=== PATIENT | male | born 1965 | race Caucasian/White ===

== ENCOUNTER → 2017-06-02 | Outpatient (CLI) | payer OTHER, BC ==
[2017-06-02 07:31] LABS: Basophils # (A) 0.1 k/uL (0-0.2); Basophils % (A) 1 %; CH 30.9; CHCM 32.9; Eosinophils # (A) 0.2 k/uL (0-0.7); Eosinophils % (A) 4 %; HCT 45.3 % (39.0-53.0); HDW 2.05; HGB 14.7 gm/dL (13.0-17.5); Luc # (Auto) 0.14; Luc % (Auto) 3; Lymphocytes # (A) 1.9 k/uL (1.0-4.8); Lymphocytes % (A) 35 %; MCH 30.6 pg (25.0-35.0); MCHC 32.4 g/dL (31.0-37.0); MCV 94.2 fL (80.0-100.0); Mean Platelet Volume 7.1; Monocytes # (A) 0.4 k/uL (0-1.0); Monocytes % (A) 7 %; Neutrophils # (A) 2.7 k/uL (1.3-7.7); Neutrophils % (A) 50 %; RDW 13.8 % (11.5-15.5); WBC 5.3 k/uL (3.8-10.6); WBC (Perox) 5.31
[2017-06-02 13:36] LABS: ALT 39 U/L (21-72); AST 21 U/L (17-59); Alkaline Phosphatase 46 U/L (38-126); Anion Gap 6 mmol/L; Blood Urea Nitrogen 19 mg/dL (9-20); Calcium 9.6 mg/dL (8.4-10.2); Carbon Dioxide 27 mmol/L (22-30); Chloride 106 mmol/L (98-107); Cholesterol 221 mg/dL (<200); Glucose 117 mg/dL (74-99); HDL Cholesterol 63 mg/dL (40-60); Non-African American GFR(MDRD) >60 (>60 ml/min/1.73 sqM); Potassium 4.5 mmol/L (3.5-5.1); Sodium 139 mmol/L (137-145); Total Bilirubin 0.4 mg/dL (0.2-1.3); Total Protein 6.6 g/dL (6.3-8.2)
== END | disposition home or self-care (01) ==
LOC: LABWHC1 06:49
PROVIDERS: ATTEND Internal Medicine
DX: Z00.00 Encounter for general adult medical examination without abnormal findings (principal); I10 Essential (primary) hypertension; E78.4 Other hyperlipidemia; R73.9 Hyperglycemia, unspecified; Z12.5 Encounter for screening for malignant neoplasm of prostate
CPT/HCPCS: 36415; 80053; 80061; 83036; 84153; 84443; 85025

== ENCOUNTER 2017-08-15 13:19 | Emergency (ER) | payer OTHER, BC ==
[2017-08-15 13:24] VITALS: RESP 18
[2017-08-15] MEDS ORDERED: ASPIRIN 81 MG PO STA (13:36)
[2017-08-15] MEDS ORDERED: KETOROLAC 30 MG/ML 1 ML VIAL IVP STA (13:36)
[2017-08-15 13:46] LABS: Basophils % (A) 0 %; Eosinophils # (A) 0.1 k/uL (0-0.7); Eosinophils % (A) 1 %; HCT 43.9 % (39.0-53.0); Lymphocytes # (A) 1.3 k/uL (1.0-4.8); Lymphocytes % (A) 20 %; MCH 31.1 pg (25.0-35.0); MCHC 34.2 g/dL (31.0-37.0); MCV 90.7 fL (80.0-100.0); Mean Platelet Volume 6.1; Monocytes # (A) 0.3 k/uL (0-1.0); Monocytes % (A) 4 %; Neutrophils # (A) 4.9 k/uL (1.3-7.7); Neutrophils % (A) 74 %; Platelet Count 229 k/uL (150-450); RBC 4.84 m/uL (4.30-5.90); RDW 12.1 % (11.5-15.5); WBC 6.7 k/uL (3.8-10.6)
--- NOTE | 2017-08-15 13:51 | ED ---
Chest Pain HPI - General Chief Complaint: Chest Pain Stated Complaint: chest pain-sent by [employer] Time Seen by Provider: 08/15/17 13:31 Source: patient, family, RN notes reviewed Mode of arrival: wheelchair Limitations: no limitations - History of Present Illness Initial Comments: This is a 52-year-old male with a benign past medical history who states he woke up this point with sharp left-sided chest pain goes down his left arm and to his back. He states that he cellulitis no yesterday he denies any shortness of breath fevers chills nausea vomiting sweats or other symptoms he is a nonsmoker. The pain is about 6/10 severity increases with certain movements. He voices no other complaints MD Complaint: chest pain - Related Data Home Medications Medication Instructions Recorded Confirmed Lisinopril/Hydrochlorothiazide 2 tab PO DAILY 06/18/15 08/15/17 [Lisinopril-Hctz 20-12.5 mg Tab] Multivitamins, Thera [Theragran] 1 tab PO DAILY 06/18/15 08/15/17 Aspirin 81 mg PO DAILY 08/15/17 08/15/17 [place]-3 Fatty Acids/Fish Oil [Fish 1 cap PO DAILY 08/15/17 08/15/17 Oil 1,000 mg Softgel] Vitamin B Complex 1 cap PO DAILY 08/15/17 08/15/17 Previous Rx's Medication Instructions Recorded Ibuprofen 800 mg PO Q6HR PRN #20 tablet 08/15/17 Allergies Allergy/AdvReac Type Severity Reaction Status Date / Time No Known Allergies Allergy Verified 08/15/17 13:49 Review of Systems ROS Statement: Those systems with pertinent positive or pertinent negative responses have been documented in the HPI. ROS Other: All systems not noted in ROS Statement are negative. EKG Findings - EKG Results: EKG: interpreted by NAHED, sinus rhythm (EKG shows normal sinus rhythm of 98 KS interval 170 QRS duration 106 daily since QTC of 352/[address]-T wave changes. This is compared with the one submitted from [facility] which shows no acute changes) Past Medical History Past Medical History: Hypertension History of Any Multi-Drug Resistant Organisms: None Reported Past Surgical History: Orthopedic Surgery Past Psychological History: No Psychological Hx Reported Smoking Status: Never smoker Past Alcohol Use History: Occasional Past Drug Use History: None Reported General Exam - General Exam Comments Initial Comments: This is a well-developed well-nourished awake alert oriented times 3 male Limitations: no limitations General appearance: alert, in no apparent distress Head exam: Present: atraumatic, normocephalic, normal inspection Eye exam: Present: normal appearance, PERRL, EOMI. Absent: scleral icterus, conjunctival injection, periorbital swelling ENT exam: Present: normal exam, mucous membranes moist Neck exam: Present: normal inspection. Absent: tenderness, meningismus, lymphadenopathy Respiratory exam: Present: normal lung sounds bilaterally, chest wall tenderness (Producible tenderness palpation of the left costochondral margin as well as the left rhomboids in the back.). Absent: respiratory distress, wheezes , rales, rhonchi, stridor Cardiovascular Exam: Present: regular rate, normal rhythm, normal heart sounds. Absent: systolic murmur, diastolic murmur, rubs, gallop, clicks GI/Abdominal exam: Present: soft, normal bowel sounds. Absent: distended, tenderness, guarding, rebound, rigid Extremities exam: Present: normal inspection, full ROM, normal capillary refill. Absent: tenderness, pedal edema, joint swelling, calf tenderness Back exam: Present: normal inspection Neurological exam: Present: alert, oriented X3, CN II-XII intact Psychiatric exam: Present: normal affect, normal mood Skin exam: Present: warm, dry, intact, normal color. Absent: rash Course Vital Signs 08/15/17 08/15/17 13:21 14:19 Temperature 98.7 F Pulse Rate 102 H 86 Respiratory 18 18 Rate Blood Pressure 179/98 157/94 O2 Sat by Pulse 97 99 Oximetry - Reevaluation(s) Reevaluation #1: 08/15/17 15:29 I did reevaluate the patient is feeling much improved at this time. Chest Pain MDM - MDM I did review the imaging and reports no acute findings there is a solitary left pulmonary nodule was noted patient initially much improved he is pain-free at this time the presentation is consistent with costochondritis. I did discuss the pulmonary nodule with the patient has . Patient will be discharged on appropriate anti-inflammatories is a follow-up with his doctor in her own pulmonary medicine. Disposition Clinical Impression: Costalchondritis, Chest wall syndrome, Pulmonary nodule Disposition: HOME SELF-CARE Condition: Good Instructions: Costochondritis (ED) Prescriptions: Ibuprofen 800 mg PO Q6HR PRN #20 tablet PRN Reason: Pain Referrals: Brenda Lara MD [Primary Care Provider] - 1-2 days Anurag Joyce MD [STAFF PHYSICIAN] - 1-2 days
[2017-08-15 13:58] LABS: D-Dimer 0.32 mg/L FEU (<0.60)
[2017-08-15 14:02] LABS: ALT 36 U/L (21-72); AST 23 U/L (17-59); Albumin 4.4 g/dL (3.5-5.0); Alkaline Phosphatase 50 U/L (38-126); Anion Gap 10 mmol/L; Blood Urea Nitrogen 14 mg/dL (9-20); Calcium 9.8 mg/dL (8.4-10.2); Carbon Dioxide 26 mmol/L (22-30); Chloride 102 mmol/L (98-107); Glucose 109 mg/dL (74-99); Magnesium 2.1 mg/dL (1.6-2.3); Partial Thromboplastin Time 22.3 sec (22.0-30.0); Potassium 4.4 mmol/L (3.5-5.1); Prothrombin Time 9.8 sec (9.0-12.0); Sodium 138 mmol/L (137-145); Total Bilirubin 0.5 mg/dL (0.2-1.3); Total Protein 7.1 g/dL (6.3-8.2)
[2017-08-15 14:17] LABS: Creatine Kinase 127 U/L (55-170)
--- NOTE | 2017-08-15 14:26 | XR ---
EXAMINATION TYPE: XR chest 2V DATE OF EXAM: 08/15/2017 HISTORY: Chest Pain. REFERENCE: NONE. FINDINGS: There is an 8 mm pulmonary nodule in the left CP angle. Lungs otherwise clear. Pleural spac es are clear. The heart is not enlarged. IMPRESSION: SOLITARY LEFT PULMONARY NODULE.
[2017-08-15 14:31] LABS: Troponin I <0.012 ng/mL (0.000-0.034)
[2017-08-15 14:49] LABS: Creatine Kinase MB 2.9 ng/mL (0.0-2.4)
[2017-08-15 15:34] VITALS: BP 149/78; PULSE 77; TEMP 97.6
== END 2017-08-15 15:37 | disposition home or self-care (01) ==
LOC: EC 13:19
DX: M94.0 Chondrocostal junction syndrome [Tietze] (principal); R91.1 Solitary pulmonary nodule; I10 Essential (primary) hypertension; Z79.82 Long term (current) use of aspirin; Z79.899 Other long term (current) drug therapy
CPT/HCPCS: 36415; 93005; 85379; 83880; 80053; 82550; 82553; 83735; 84484; 85025; 85610; 85730; 71046; 99285; 96374; J1885

== ENCOUNTER 2018-04-29 10:16 | Day surgery (SDC) | payer OTHER, BC ==
[2018-04-27 14:50] VITALS: BMI 30.7
[~2018-04-29 10:16] MED LIST: LACTATED RINGERS 1,000 ML IV SCH; LIDOCAINE 1% 20 ML VIAL (10MG/ML) FOR IV START INTRADERMA PRN
[2018-04-29 10:41] VITALS: RESP 16; TEMP 98.6
[2018-04-29] MEDS ORDERED: PROPOFOL 10 MG/ML 20 ML VIAL IV ONE (10:59)
--- NOTE | 2018-04-29 11:09 | P.GSHP ---
History of Present Illness H&P Date: 04/29/18 Chief Complaint: Screening colonoscopy This a 53-year-old male referred for screening colonoscopy. He denies any significant GI contents. Past Medical History Past Medical History: Hypertension Additional Past Medical History / Comment(s): SCREENING History of Any Multi-Drug Resistant Organisms: None Reported Past Surgical History: Orthopedic Surgery Additional Past Surgical History / Comment(s): LT KNEE SCOPE Past Anesthesia/Blood Transfusion Reactions: No Reported Reaction Smoking Status: Never smoker - Past Family History Mother Family Medical History: No Reported History Medications and Allergies Home Medications Medication Instructions Recorded Confirmed Type Lisinopril/Hydrochlorothiazide 2 tab PO DAILY 06/18/15 04/29/18 History [Lisinopril-Hctz 20-12.5 mg Tab] Allergies Allergy/AdvReac Type Severity Reaction Status Date / Time No Known Allergies Allergy Verified 04/29/18 10:30 Surgical - Exam Vital Signs Temp Pulse Resp BP Pulse Ox 98.6 F 99 16 152/98 96 04/29/18 10:37 04/29/18 10:37 04/29/18 10:37 04/29/18 10:37 04/29/18 10:37 - General well developed, no distress - Eyes PERRL - ENT normal pinna - Neck no masses - Respiratory normal expansion - Cardiovascular Rhythm: regular - Abdomen Abdomen: soft, non tender Assessment and Plan Assessment: We'll perform screening colonoscopy.
--- NOTE | 2018-04-29 11:23 | P.OP ---
Date of Procedure: 04/29/18 Preoperative Diagnosis: Screening colonoscopy Postoperative Diagnosis: Normal colonoscopy Procedure(s) Performed: Colonoscopy Anesthesia: MAC Surgeon: Unruly Potts Pathology: none sent Condition: stable Disposition: PACU Description of Procedure: PROCEDURE: The patient was placed on the endoscopy table in the lateral position. Digital rectal examination was performed which revealed no abnormalities. The prostate was symmetrical without nodules. Flexible colonoscope was then placed in the patient's anus and passed throughout the entire colon. The ileocecal valve was visualized. The cecum, ascending, transverse, descending and sigmoid colon were normal. The rectum was normal as well. There were no masses, polyps or diverticula noted in the entire colon. SUMMARY OF FINDINGS: Normal colonoscopy.
[2018-04-29 11:53] VITALS: BP 126/76; PULSE 80
== END 2018-04-29 12:22 | disposition home or self-care (01) ==
LOC: ORWHC2ENDO 10:16
PROVIDERS: ATTEND Surgery
DX: Z12.11 Encounter for screening for malignant neoplasm of colon (principal); I10 Essential (primary) hypertension; Z79.899 Other long term (current) drug therapy
CPT/HCPCS: J2704; G0121

== ENCOUNTER → 2018-06-18 | Outpatient (CLI) | payer OTHER, BC ==
[2018-06-18 09:23] LABS: Basophils % (A) 1 %; Eosinophils # (A) 0.1 k/uL (0-0.7); Eosinophils % (A) 3 %; HCT 44.4 % (39.0-53.0); HGB 14.6 gm/dL (13.0-17.5); Lymphocytes # (A) 1.5 k/uL (1.0-4.8); Lymphocytes % (A) 38 %; MCH 30.5 pg (25.0-35.0); MCV 92.3 fL (80.0-100.0); Mean Platelet Volume 6.6; Monocytes # (A) 0.3 k/uL (0-1.0); Monocytes % (A) 8 %; Neutrophils % (A) 49 %; Platelet Count 236 k/uL (150-450); RBC 4.81 m/uL (4.30-5.90); RDW 12.3 % (11.5-15.5); WBC 4.1 k/uL (3.8-10.6)
[2018-06-18 17:00] LABS: Albumin 4.4 g/dL (3.80-4.90); Albumin/Globulin Ratio 2.59 (1.20-2.10); Anion Gap 5.4 mmol/L (4.00-12.00); Calcium 9.3 mg/dL (8.7-10.3); Carbon Dioxide 27.6 mmol/L (21.6-31.8); Globulin 1.7 g/dL (2.1-3.7); LDL Cholesterol,Calculated 129.4 mg/dL (0.0-131.0); Potassium 4.8 mmol/L (3.5-5.5); Total Bilirubin 0.5 mg/dL (0.2-1.2); Total Protein 6.1 g/dL (6.2-8.2); VLDL Calculation 12.6 mg/dL (5.00-40.00)
== END | disposition home or self-care (01) ==
LOC: LABWHC1 08:19
PROVIDERS: ATTEND Internal Medicine
DX: Z00.00 Encounter for general adult medical examination without abnormal findings (principal); I10 Essential (primary) hypertension; Z12.5 Encounter for screening for malignant neoplasm of prostate
CPT/HCPCS: 80061; 80053; 84443; 85025; 36415; G0103

== ENCOUNTER → 2018-10-21 | Outpatient (CLI) | payer OTHER, BC ==
[2018-10-21 10:03] LABS: Blood Urea Nitrogen 13 mg/dL (9-20)
--- NOTE | 2018-10-21 12:34 | CT ---
EXAMINATION TYPE: CT pelvis w con DATE OF EXAM: 10/21/2018 COMPARISON: None INDICATION: Prostate CA DLP: 1032.2 mGycm, Automated exposure control for dose reduction was used. CONTRAST: 100 mL of Isovue 300. Study performed with Oral Contrast TECHNIQUE: Axial images were obtained from above the diaphragm to the pubic rami in the axial plane a t 5 mm thick sections. Reconstructed images are reviewed on the computer in the coronal plane. FINDINGS: Limited CT sections are obtained through the abdomen. Peripelvic cysts are present on the l eft kidney. CT PELVIS: Loops of bowel within the abdomen and pelvis are normal. There are loops of bowel which are incom pletely distended or lack oral contrast limiting their evaluation. No abnormal adenopathy is evident. Appendix: Not identified. No suspicious inflammatory changes or dilated tubular structures are eviden t. Urinary bladder: Normal. Genitourinary structures: Prostate appears normal in size. There are some calcifications within the p rostate. Osseous structures: No suspicious lytic or sclerotic lesions. Small subchondral cyst is likely presen t on the lateral left femoral head. Facet changes are in the lower lumbar spine. Couple of tiny bone islands may be within the right medial iliac wing sclerotic metastases is not excluded. IMPRESSIONS: 1. Couple of suspected bone islands within the right medial iliac wing. Borders are not completely s mooth and small sclerotic metastases are not excluded.
--- NOTE | 2018-10-21 16:07 | NM ---
EXAMINATION TYPE: NM bone scan whole body DATE OF EXAM: 10/21/2018 COMPARISON: NONE HISTORY: Prostate cancer Delayed whole-body scanning was performed following the injection of 24.6 mCi Tc 99m MDP. Images wer e acquired 3.5 hours post injection. FINDINGS: Radiotracer distribution to the axial and appendicular skeleton is reviewed. On the posterior projections there is some mild increased uptake in the region of the right the 10 le aniyah, left T9 level, and the right T7 level. This is nonspecific but could be related to degenerative change. Some additional uptake is noted in the mid left cervical spine which could be related to dege nerative change. There is a focal area of radiotracer accumulation above the left orbit. No calvarial metastatic lesio n is not excluded. There is some minimal uptake in the region of the bilateral knees and in the right foot most likely d egenerative in nature. Radiotracer distribution otherwise appears unremarkable. IMPRESSION: 1. Punctate area of uptake above the left orbit could be a metastatic lesion. 2. Generalized uptake within the left mid cervical spine and within the mid to lower thoracic spine d iscussed above is nonspecific and could be related to degenerative change or metastatic disease.
== END | disposition home or self-care (01) ==
LOC: RADCTMAIN 09:18
PROVIDERS: ATTEND Urology
DX: C61 Malignant neoplasm of prostate (principal); R93.7 Abnormal findings on diagnostic imaging of other parts of musculoskeletal system
CPT/HCPCS: 82565; 84520; 72193; 36415; 78306; A9503; Q9967

== ENCOUNTER → 2018-11-01 | Outpatient (CLI) | payer OTHER, BC ==
--- NOTE | 2018-11-01 22:55 | XR ---
EXAMINATION TYPE: XR orbit complete bilateral, XR skull complete DATE OF EXAM: 11/01/2018 COMPARISON: Whole body bone scan October 21, 2018. HISTORY: Prostate cancer. TECHNIQUE: Orbits complete with frontal Eller and Lewis images and true lateral projection. Skull complete with frontal, and both lateral projections. FINDINGS: No suspicious sclerotic lesion identified to correspond to a subtle area of radiotracer upt leatha just above left orbit. No suspicious sclerotic lesion identified throughout the entire calvarium. Visualized sinuses are clear. Overlying soft tissue is unremarkable. IMPRESSION: As above.
--- NOTE | 2018-11-01 22:57 | XR ---
EXAMINATION TYPE: XR pelvis AP view DATE OF EXAM: 11/01/2018 CLINICAL HISTORY: Prostate cancer. TECHNIQUE: A single AP view of the pelvis is obtained. COMPARISON: Whole body bone scan and CT pelvis October 21, 2018. FINDINGS: There is no acute fracture/dislocation evident in the pelvis. The hip and sacroiliac join ts appear symmetric and unremarkable. No suspicious sclerotic focus is evident with CT and bone scan correlation noted. Tiny sclerotic focus right iliac crest near SI joint seen better on CT coronal tyson ge 53 does not show hypermetabolic uptake on bone scan, similar lesions seen midline upper to mid sac rum coronal image 60. Findings favor benign bone islands. The overlying soft tissue appears unremarka ble. IMPRESSION: As above.
== END | disposition home or self-care (01) ==
LOC: RADXRMAIN 16:47
PROVIDERS: ATTEND Urology
DX: C61 Malignant neoplasm of prostate (principal); M89.8X8 Other specified disorders of bone, other site
CPT/HCPCS: 70200; 70260; 72170

== ENCOUNTER → 2018-11-18 | Outpatient (CLI) | payer OTHER, BC ==
[2018-11-18 14:56] LABS: Anion Gap 9 mmol/L; Blood Urea Nitrogen 16 mg/dL (9-20); Carbon Dioxide 25 mmol/L (22-30); Chloride 103 mmol/L (98-107); Glucose 88 mg/dL (74-99); Sodium 137 mmol/L (137-145)
[2018-11-18 15:34] LABS: Basophils % (A) 1 %; Eosinophils # (A) 0.1 k/uL (0-0.7); Eosinophils % (A) 2 %; HCT 44.4 % (39.0-53.0); HGB 14.8 gm/dL (13.0-17.5); Lymphocytes # (A) 1.7 k/uL (1.0-4.8); Lymphocytes % (A) 23 %; MCH 30.4 pg (25.0-35.0); MCHC 33.3 g/dL (31.0-37.0); MCV 91.2 fL (80.0-100.0); Mean Platelet Volume 6.3; Monocytes # (A) 0.5 k/uL (0-1.0); Monocytes % (A) 7 %; Neutrophils # (A) 4.9 k/uL (1.3-7.7); Neutrophils % (A) 67 %; Platelet Count 250 k/uL (150-450); RBC 4.87 m/uL (4.30-5.90); RDW 12.4 % (11.5-15.5); WBC 7.4 k/uL (3.8-10.6)
== END ==
LOC: LABPAT 14:17
PROVIDERS: ATTEND Urology
DX: Z01.818 Encounter for other preprocedural examination (principal); Z01.812 Encounter for preprocedural laboratory examination; C61 Malignant neoplasm of prostate; I10 Essential (primary) hypertension; Z79.899 Other long term (current) drug therapy
CPT/HCPCS: 80048; 85025; 93005

== ENCOUNTER → 2018-12-05 | Outpatient (CLI) | payer OTHER, BC | END | disposition home or self-care (01) | LOC: LABPAT 09:38 | PROVIDERS: ATTEND Urology | DX: C61 Malignant neoplasm of prostate (principal); I10 Essential (primary) hypertension; Z79.899 Other long term (current) drug therapy | CPT/HCPCS: 36415; 86850; 86900; 86901 ==

== ENCOUNTER 2018-12-07 10:51 | Day surgery (SDC) | payer OTHER, BC ==
--- NOTE | 2018-12-01 10:03 | P.GSHP ---
History of Present Illness H&P Date: 12/01/18 Chief Complaint: Prostate cancer The patient is a 53-year-old white male recently found to have an elevated PSA level of 7.30, up from 4.0 in late 2017. He is relatively free of voiding symptoms. He uses Cialis for mild erectile dysfunction. KELLIE revealed the prostate to be palpably normal. Prostate ultrasound revealed a prostate volume of 24 mL, with diminished echogenicity within the right lateral mid gland. 4 of 12 biopsies, all on the right side, contained [place] 78 adenocarcinoma. All 6 left-sided biopsies were negative. A computed tomography scan of the pelvis and a bone scan were obtained for staging purposes and showed no metastases. Alternative treatment options have been reviewed, and he has elected to undergo a left nerve sparing robotic-assisted laparoscopic prostatectomy (RALP) with bilateral pelvic lymphadenectomy. - Cardiovascular Cardiovascular: Reports high blood pressure - Genitourinary (Female) Genitourinary: Reports nocturia Past Medical History Past Medical History: Hypertension Additional Past Medical History / Comment(s): SCREENING History of Any Multi-Drug Resistant Organisms: None Reported Past Surgical History: Orthopedic Surgery Additional Past Surgical History / Comment(s): Left Knee Arthroscopy, Vasectomy Past Anesthesia/Blood Transfusion Reactions: No Reported Reaction Smoking Status: Never smoker - Past Family History Mother Family Medical History: No Reported History Medications and Allergies Home Medications Medication Instructions Recorded Confirmed Type Lisinopril/Hydrochlorothiazide 2 tab PO DAILY 06/18/15 11/22/18 History [Lisinopril-Hctz 20-12.5 mg Tab] Allergies Allergy/AdvReac Type Severity Reaction Status Date / Time No Known Allergies Allergy Verified 11/22/18 14:46 Surgical - Exam - General well developed, well nourished, no distress - Neck no masses, trachea midline - Respiratory normal respiratory effort, clear to auscultation - Cardiovascular Rhythm: regular Abnormal Heart Sounds: no systolic murmur, no diastolic murmur, no rub, no S3 Gallop, no S4 Gallop, no click, no other - Abdomen Abdomen: soft, non tender, no guarding, no rigid, no rebound Hernia: none - Genitourinary normal penis with no external lesions, testicles non-tender - Rectum Rectum: normal sphincter tone, no masses, other (Prostate mildly enlarged and smooth) - Psychiatric oriented to time, oriented to person, oriented to place, speech is normal, memory intact Assessment and Plan (1) Malignant neoplasm of prostate Status: Acute Code(s): C61 - MALIGNANT NEOPLASM OF PROSTATE SNOMED Code(s): 280807907 Plan: Left nerve sparing robotic-assisted laparoscopic prostatectomy (RALP) with bilateral pelvic lymphadenectomy. The procedure has been reviewed in detail with the patient and his family. Potential risks include anesthesia, bleeding, infection, neurovascular injury, bowel injury, lymphocele, urinary leak, and vesical neck contracture. The patient understands the likelihood of erectile dysfunction despite preservation of the left neurovascular bundle. He is aware of the possibility of post-prostatectomy urinary incontinence, and the fact that this may fail to resolve. He also understands the possible need for adjuvant therapy. The possible need to convert to an open procedure was discussed.
[~2018-12-07 10:51] MED LIST changes: +DEXAMETHASONE SOD PHOSPHATE 10 MG/ML 1 ML VIAL IV ONE; +HEPARIN SODIUM,PORCINE 5,000 UNIT/ML 1 ML VIAL SQ ONE; +HYDROmorphone 0.5 MG/0.5 ML SYRINGE IVP PRN; -LACTATED RINGERS 1,000 ML IV SCH; +ONDANSETRON 4 MG/2 ML VIAL IVP ONE; +SCOPOLAMINE 1.5MG/72HR PATCH TRANSDERM ONE; +ceFAZolin IN SWFI 2 GM/20 ML SYRINGE IVP ONE
[2018-12-07] MEDS: LACTATED RINGERS 1,000 ML IV SCH (11:31)
[2018-12-07] MEDS ORDERED: NEOSTIGMINE 1 MG/ML 10 ML VIAL ONE (13:14)
[2018-12-07] MEDS ORDERED: MIDAZOLAM 2 MG/2 ML VIAL ONE (13:14)
[2018-12-07] MEDS ORDERED: MORPHINE SULFATE 10 MG/ML SYRINGE ONE (13:14)
[2018-12-07] MEDS ORDERED: HYDROmorphone (PF) 1 MG/ML ONE (13:14)
[2018-12-07] MEDS ORDERED: GLYCOPYRROLATE 0.2 MG/ML 2 ML VIAL ONE (13:14)
[2018-12-07] MEDS ORDERED: PROPOFOL 10 MG/ML 20 ML VIAL IV ONE (13:14)
[2018-12-07] MEDS ORDERED: fentaNYL (PF) 50 MCG/ML 2 ML AMP ONE (13:14)
[2018-12-07] MEDS ORDERED: ROCURONIUM BROMIDE 10 MG/ML 10 ML VIAL IV ONE (13:14)
[2018-12-07] MEDS ORDERED: LIDOCAINE 1% INJ 10MG/ML (20 ML MDV) ONE (13:14)
[2018-12-07] MEDS ORDERED: SUCCINYLCHOLINE CHLORIDE VIAL 200 MG/10 ML VIAL IV ONE (13:14)
[2018-12-07] MEDS ORDERED: BUPIVACAINE (PF) 0.25% 30 ML VIAL SQ ONE ×2 (14:22)
[2018-12-07] MEDS ORDERED: LACTATED RINGERS 1,000 ML IV ONE ×4 (16:34→16:57)
[2018-12-07] MEDS ORDERED: ONDANSETRON 4 MG/2 ML VIAL IVP PRN (17:17)
[2018-12-07] MEDS ORDERED: HYDROmorphone 1 MG/ML 1 ML SYRINGE IVP PRN (17:17)
[2018-12-07] MEDS ORDERED: KETOROLAC 30 MG/ML 1 ML VIAL IVP PRN (17:17)
[2018-12-07] MEDS ORDERED: ACETAMINOPHEN TAB 325 MG TAB PO PRN (17:17)
--- NOTE | 2018-12-07 17:17 | P.OP ---
Date of Procedure: 12/07/18 Preoperative Diagnosis: Adenocarcinoma of the prostate, clinical stage TIc NX M0 Postoperative Diagnosis: Same Procedure(s) Performed: Left nerve sparing robotic-assisted laparoscopic prostatectomy (RALP) with bilateral pelvic lymphadenectomy Anesthesia: CARRILLO Surgeon: Saul Chu Machine Maintenance Repairer #1: Shayy Shields Estimated Blood Loss (ml): 75 IV fluids (ml): 1,400 Pathology: other (Prostate, seminal vesicles, bilateral pelvic lymph nodes) Condition: stable Disposition: PACU Indications for Procedure: The patient is a 53-year-old white male recently found to have an elevated PSA level of 7.30, up from 4.0 in late 2017. He is relatively free of voiding symptoms. He uses Cialis for mild erectile dysfunction. KELLIE revealed the prostate to be palpably normal. Prostate ultrasound revealed a prostate volume of 24 mL, with diminished echogenicity within the right lateral mid gland. 4 of 12 biopsies, all on the right side, contained [place] 78 adenocarcinoma. All 6 left-sided biopsies were negative. A computed tomography scan of the pelvis and a bone scan were obtained for staging purposes and showed no metastases. Alternative treatment options have been reviewed, and he has elected to undergo a left nerve sparing robotic-assisted laparoscopic prostatectomy (RALP) with bilateral pelvic lymphadenectomy. Operative Findings: No evidence of extraprostatic disease. Description of Procedure: The patient was taken in the operating room and placed in the dorsal lithotomy position, with his legs supported in Christiano stirrups. He was carefully positioned on a beanbag for stability. The abdomen and external genitalia were prepped and draped sterilely. A Salazar catheter was inserted. The Veress needle was passed through the anterior abdominal wall immediately cephalad to the umbilicus, and insufflation was performed to a pressure of 20 mm Hg. Once insufflation was performed, the Veress needle was removed and a supraumbilical incision was made, through which a 12 mm camera port was placed. Under camera guidance, 3 8 mm robotic ports were placed, 2 on the left and one on the right. An additional 12 mm port was placed on the right lateral side for use as an pharmaceutical assistant port. A 5 mm port was placed to the right of the camera port for suction. The patient was placed in Trendelenburg position, and docking was then performed to the da Chucho system utilizing a 4-arm approach. The abdomen was examined. The sigmoid colon was mobilized out of the pelvis. The peritoneum was incised lateral to the medial umbilical ligaments bilaterally, exposing the pubis. The peritoneum was then incised across the midline, allowing the bladder flap to be taken down. The endopelvic fascia was opened bilaterally, and muscular attachments from the urogenital diaphragm were swept away from the prostate. Bilateral pelvic lymphadenectomies were performed in the standard fashion. The peritoneal incisions were extended in a cephalad direction, and the vas deferens were divided bilaterally. Margins of dissection were the bifurcation of the iliac vessels proximally, the circumflex iliac vein distally, the external iliac artery laterally, and the obturator nerve medially. A combination of sharp and blunt dissection was used. Care was taken to avoid any neurovascular injury, and the use of monopolar electrocautery was avoided immediately adjacent to neurovascular structures. The lymphatic package was clipped distally. No enlarged lymph nodes were encountered. There were no complications. The vesical neck was incised transversely, down to the lumen. The Salazar catheter was brought out through the anterior vesical neck incision and was used for traction. The posterior aspect of the vesical neck was incised, such that the full-thickness of the vesical neck was divided. The anterior layer of the Denonvilliers fascia was incised, exposing the vas deferens. Each were isolated and divided. Next, each of the seminal vesicles were dissected away from adjacent tissues, and vascular attachments were cauterized and divided. The posterior leaf of Denonvilliers fascia was incised transversely, allowing entry into the plane between the prostate and rectum. With lateral spreading, this plane was developed down to the apex. This exposed the lateral vascular pedicles bilaterally. These were clipped and divided in an antegrade fashion, down to the apex. The use of electrocautery was avoided on the left side to prevent thermal damage to the nerves. Wide excision of the neurovascular bundle was performed on the right side, but the plane of dissection on the left side was immediately adjacent to the prostate to preserve the left neurovascular bundle. The remaining apical attachments were swept away from the prostate. The dorsal venous complex was incised, as well as periurethral tissue. At this point, only the urethra remained intact. This was transected immediately distal to the prostatic apex using cold scissors. The specimen was placed within a specimen bag. At this point, the distal aspect of the right neurovascular bundle appeared nodular. Though this is likely fat, a second clip was applied behind it to allow this to be removed and sent as a separate specimen. The dorsal venous complex was sutured using a V-Loc suture in a running fashion. The suture was passed through the periosteum of the pubis periurethral support. A second V-Loc suture was then used to place the Cornelius stitch, incorporating the rhabdosphincter and the edge of Denonvilliers fascia. This allowed the bladder to be taken down to the urethra, leaving the vesical neck immediately adjacent to the urethra. The vesicourethral anastomosis was then performed using a V-Loc suture in a running fashion. After completing the anastomosis, an 18-Tamazight Salazar catheter was placed and approximately 150 mL of 0.9 normal saline were instilled into the bladder. No extravasation of irrigant from the vesicourethral anastomosis was noted. Hemostasis was noted at this time to be excellent, and it was thus felt that a drain was unnecessary. Surgicel was placed bilaterally over the neurovascular bundles, and Tisseel was sprayed into the pelvis over the vascular pedicles, dorsal vein, and vesicourethral anastomosis. The patient was returned to the supine position. Undocking was performed, and the specimen bag sutures were passed through the camera port. After removing all the ports and allowing all of the CO2 to be released from the peritoneal cavity, the camera port incision was enlarged to allow removal of the surgical specimen. The fascia of this incision was then closed using 0 Vicryl suture in an interrupted [id number] fashion. Each of the skin incisions were then closed using 4-0 Monocryl suture in a subcuticular fashion. Marcaine was injected at each of the incision sites. Dermabond was applied to each incision. The Salazar catheter was connected to gravity drainage. All sponge and needle counts were correct. The patient tolerated the procedure well was taken to the recovery room in stable condition.
[2018-12-07] MEDS: DEXTROSE 5%-0.45% NACL 1,000 ML IV SCH (19:31)
[2018-12-07 21:24] VITALS: BMI 30.3
[2018-12-07] MEDS: HEPARIN SODIUM,PORCINE 5,000 UNIT/ML 1 ML VIAL SQ SCH (21:36)
[2018-12-08] MEDS: DEXTROSE 5%-0.45% NACL 1,000 ML IV SCH (02:12)
[2018-12-08 08:32] VITALS: BP 119/77; PULSE 82; RESP 15; TEMP 98.6
[2018-12-08] MEDS ORDERED: LISINOPRIL-HCTZ 20-12.5 MG 1 EACH TAB PO SCH (09:00)
[2018-12-08] MEDS: HEPARIN SODIUM,PORCINE 5,000 UNIT/ML 1 ML VIAL SQ SCH (09:35)
--- NOTE | 2018-12-08 12:04 | P.DS ---
Providers Expected date of discharge: 12/08/18 Attending physician: Saul Chu Primary care physician: Brenda Lara - Discharge Diagnosis(es) (1) Malignant neoplasm of prostate Current Visit: Yes Status: Acute Hospital Course: On the day of admission, the patient underwent an uncomplicated robotic assisted laparoscopic prostatectomy. The postoperative course was unremarkable. The patient remained afebrile with stable vital signs. On the first postoperative day, he tolerated clear liquid diet and was comfortable. He was ambulating without difficulty. The Salazar catheter was draining clear yellow urine. The incisions were clean, dry, and intact. Procedures: Robotic-assisted laparoscopic prostatectomy (RALP) with bilateral pelvic lymphadenectomy on 12/07/2018. Patient Condition at Discharge: Good Plan - Discharge Summary Discharge Rx Participant: No New Discharge Prescriptions: New Ciprofloxacin HCl [Cipro] 250 mg PO Q12HR #6 tablet Hydrocodone/Acetaminophen [[place] 5-325] 1 - 2 each PO Q4HR PRN #6 tab PRN Reason: Pain No Action Lisinopril/Hydrochlorothiazide [Lisinopril-Hctz 20-12.5 mg Tab] 2 tab PO DAILY Discharge Medication List Lisinopril/Hydrochlorothiazide [Lisinopril-Hctz 20-12.5 mg Tab] 2 tab PO DAILY 06/18/15 [History] Ciprofloxacin HCl [Cipro] 250 mg PO Q12HR #6 tablet 12/08/18 [Rx] Hydrocodone/Acetaminophen [[place] 5-325] 1 - 2 each PO Q4HR PRN #6 tab 12/08/18 [ Rx] Follow up Appointment(s)/Referral(s): Saul Chu MD [STAFF PHYSICIAN] - 12/16/18 Activity/Diet/Wound Care/Special Instructions: Discharge home with Salazar catheter. Please provide patient with an overnight drainage bag as well as a urinary leg bag, and instruct him on the use of both. Okay to shower. Diet as tolerated. No lifting, driving, or strenuous activity. Begin taking ciprofloxacin on December 15, 2018. Follow-up appointment on December 16 in the morning. Please reassure patient that it is common to experience the following: Hematuria, urinary leakage around the catheter, abdominal wall bruising, and penoscrotal swelling. Discharge Disposition: HOME SELF-CARE
== END 2018-12-08 13:11 | disposition home or self-care (01) ==
LOC: OR 10:51 → 4SSUR 17:18 → OR 12-08 13:11
PROVIDERS: ATTEND Urology
DX: C61 Malignant neoplasm of prostate (principal); I10 Essential (primary) hypertension; Z79.899 Other long term (current) drug therapy
CPT/HCPCS: 86900; 86901; 88305; 86850; 88307; 88309; 36415; 55866; 38571; C1762; J2250; J0330; J1644 ×2; J1100; J2710; J2270; J2405; J2001; J3010; J1885; J1170; J2704; J0690

== ENCOUNTER → 2019-01-16 | Outpatient (CLI) | payer OTHER, BC | END | disposition home or self-care (01) | LOC: LABWHC1 11:29 | PROVIDERS: ATTEND Urology | DX: C61 Malignant neoplasm of prostate (principal) | CPT/HCPCS: 36415; 84153 ==

== ENCOUNTER → 2019-04-25 | Outpatient (CLI) | payer OTHER, BC | END | disposition home or self-care (01) | LOC: LABWHC1 15:07 | PROVIDERS: ATTEND Urology | DX: C61 Malignant neoplasm of prostate (principal) | CPT/HCPCS: 36415; 84153 ==

== ENCOUNTER → 2019-07-21 | Outpatient (CLI) | payer OTHER, BC | END | disposition home or self-care (01) | LOC: LABWHC1 07:04 | PROVIDERS: ATTEND Urology | DX: C61 Malignant neoplasm of prostate (principal) | CPT/HCPCS: 36415; 84153 ==

== ENCOUNTER → 2019-12-22 | Outpatient (CLI) | payer OTHER, BC | END | disposition home or self-care (01) | LOC: LABWHC1 14:53 | PROVIDERS: ATTEND Urology | DX: C61 Malignant neoplasm of prostate (principal) | CPT/HCPCS: 36415; 84153 ==

== ENCOUNTER → 2020-06-24 | Outpatient (CLI) | payer OTHER, BC | END | disposition home or self-care (01) | LOC: LABWHC1 13:34 | PROVIDERS: ATTEND Urology | DX: C61 Malignant neoplasm of prostate (principal) | CPT/HCPCS: 36415; 84153 ==

== ENCOUNTER → 2020-06-27 | Outpatient (CLI) | payer OTHER, BC ==
[2020-06-27 07:38] LABS: Basophils % (A) 1 %; Eosinophils # (A) 0.2 k/uL (0-0.7); Eosinophils % (A) 4 %; HCT 43.5 % (39.0-53.0); HGB 15.1 gm/dL (13.0-17.5); Lymphocytes # (A) 1.7 k/uL (1.0-4.8); Lymphocytes % (A) 29 %; MCH 31.8 pg (25.0-35.0); MCHC 34.7 g/dL (31.0-37.0); MCV 91.7 fL (80.0-100.0); Mean Platelet Volume 6.8; Monocytes # (A) 0.4 k/uL (0-1.0); Monocytes % (A) 7 %; Neutrophils # (A) 3.3 k/uL (1.3-7.7); Neutrophils % (A) 58 %; Platelet Count 275 k/uL (150-450); RBC 4.74 m/uL (4.30-5.90); RDW 12.2 % (11.5-15.5); WBC 5.7 k/uL (3.8-10.6)
[2020-06-27 10:51] LABS: African American GFR (CKD) 118.2 (60.0-200.0); Albumin 4.4 g/dL (3.80-4.90); Albumin/Globulin Ratio 2.2 (1.60-3.17); Anion Gap 6.1 mmol/L (4.00-12.00); Calcium 9.6 mg/dL (8.7-10.3); Carbon Dioxide 26.9 mmol/L (21.6-31.8); Chol/HDL Ratio 3.31; LDL Cholesterol,Calculated 150.6 mg/dL (0.0-131.0); Potassium 4.7 mmol/L (3.5-5.5); Total Bilirubin 0.4 mg/dL (0.2-1.2); Total Protein 6.4 g/dL (6.2-8.2); VLDL Calculation 13.4 mg/dL (5.00-40.00)
== END | disposition home or self-care (01) ==
LOC: LABWHC1 07:07
PROVIDERS: ATTEND Internal Medicine
DX: Z00.00 Encounter for general adult medical examination without abnormal findings (principal); I10 Essential (primary) hypertension; Z85.46 Personal history of malignant neoplasm of prostate; E55.9 Vitamin D deficiency, unspecified; E53.8 Deficiency of other specified B group vitamins; Z11.59 Encounter for screening for other viral diseases
CPT/HCPCS: 36415; 80053; 80061; 82306; 82607; 84443; 85025; 86803

== ENCOUNTER → 2020-12-24 | Outpatient (CLI) | payer OTHER, BC | END | disposition home or self-care (01) | LOC: LABWHC1 14:35 | PROVIDERS: ATTEND Urology | DX: C61 Malignant neoplasm of prostate (principal) | CPT/HCPCS: 36415; 84153 ==

== ENCOUNTER → 2021-02-26 | Outpatient (CLI) | payer OTHER, BC ==
--- NOTE | 2021-02-26 13:50 | EST ---
EXERCISE STRESS AGE: 56 SEX: M HT: 6' WT: 230 lbs. PROTOCOL: Saleem STAGE: 3 DURATION OF EXERCISE: 7:00 HEART RATE REST: 95 BLOOD PRESSURE REST: 156/98 MAXIMUM HEART RATE ACHIEVED: 176 MAXIMUM BLOOD PRESSURE: 219/76 85% MPHR: 141 100% MPHR: 166 METS: 8.5 INDICATIONS: Chest pain CLINICAL INFORMATION: Baseline EKG revealed normal sinus rhythm without significant ST-T changes. Patient walked on a standard Saleem protocol for a total duration of 7 minutes and achieved a maximal heart rate of 170 beats per minute, which is more than 85% of his predicted maximal. He developed fatigue and shortness of breath but did not have any angina or arrhythmia. EKG did not reveal any ST-segment changes to indicate ischemia. By EKG criteria, this is a negative stress test with fair exercise capacity. The patient's peak blood pressure was 219/76. There was some hypertensive response to exercise. No angina or arrhythmia or EKG changes to indicate ischemia. FINAL IMPRESSION: This is a negative stress test by EKG criteria with fair exercise capacity and hypertensive response to exercise. The nuclear scan results, which are more pertinent, will be reported by the radiologist. MMODL / IJN: [id number] /
== END | disposition home or self-care (01) ==
LOC: RADNMMAIN 08:45
PROVIDERS: ATTEND Internal Medicine
DX: I10 Essential (primary) hypertension (principal)
CPT/HCPCS: 93017

== ENCOUNTER → 2021-08-09 | Outpatient (CLI) | payer BC ==
[2021-08-09 16:20] LABS: Basophils # (A) 0.02 X 10*3/uL (0.00-0.10); Basophils % (A) 0.4 %; Eosinophils # (A) 0.23 X 10*3/uL (0.04-0.35); Eosinophils % (A) 4.3 %; HGB 14.1 g/dL (13.0-17.0); Immature Grans, Automated 0.4 %; Lymphocytes # (A) 1.72 X 10*3/uL (0.90-5.00); Lymphocytes % (A) 32.2 %; MCH 30.8 pg (27.0-32.0); MCHC 32.8 g/dL (32.0-37.0); MCV 93.9 fL (80.0-97.0); Mean Platelet Volume 9.9 fL (9.5-12.2); Monocytes % (A) 9.4 %; NRBC Per 100 WBC 0 /100 WBCS (0.0-0.0); Neutrophils # (A) 2.85 X 10*3/uL (1.80-7.70); Neutrophils % (A) 53.3 %; Platelet Count 222 X 10*3/uL (140-440); RBC 4.58 X 10*6/uL (4.40-5.60); WBC 5.34 X 10*3/uL (4.50-10.00)
[2021-08-09 16:45] LABS: ALT 34 U/L (10-49); AST 22 U/L (14-35); African American GFR (CKD) 116.5 (60.0-200.0); Albumin 4.3 g/dL (3.8-4.9); Albumin/Globulin Ratio 1.69 (1.60-3.17); Alkaline Phosphatase 53 U/L (41-126); BUN/Creat Ratio 18.16 Ratio (12.00-20.00); Blood Urea Nitrogen 14.8 mg/dL (9.0-27.0); Calcium 9.2 mg/dL (8.7-10.3); Carbon Dioxide 24.5 mmol/L (20.0-27.5); Chloride 105 mmol/L (96-109); Chol/HDL Ratio 4.69 Ratio; Globulin 2.5 g/dL (1.6-3.3); Glucose 109 mg/dL (70-110); LDL Cholesterol,Calculated 165.4 mg/dL (0.0-131.0); Non-African American GFR(CKD) 100.5 (60.0-200.0); Potassium 4.5 mmol/L (3.5-5.5); Sodium 140 mmol/L (135-145); Total Protein 6.8 g/dL (6.2-8.2)
== END | disposition home or self-care (01) ==
LOC: LABWHC1 09:10
PROVIDERS: ATTEND Internal Medicine
DX: Z00.00 Encounter for general adult medical examination without abnormal findings (principal); Z11.59 Encounter for screening for other viral diseases; I10 Essential (primary) hypertension; M19.041 Primary osteoarthritis, right hand; M19.042 Primary osteoarthritis, left hand; E78.5 Hyperlipidemia, unspecified; E55.9 Vitamin D deficiency, unspecified; E53.8 Deficiency of other specified B group vitamins
CPT/HCPCS: 36415; 80053; 80061; 82306; 82607; 84443; 85025; 86803

== ENCOUNTER → 2021-12-25 | Outpatient (CLI) | payer BC | END | disposition home or self-care (01) | LOC: LABWHC1 14:33 | PROVIDERS: ATTEND Urology | DX: C61 Malignant neoplasm of prostate (principal) | CPT/HCPCS: 36415; 84153 ==

== ENCOUNTER → 2022-12-08 | Outpatient (CLI) | payer BC ==
--- NOTE | 2022-12-08 17:15 | P.SLEEP ---
History of Present Illness H&P Date: 12/08/22 This is a 57-year-old male patient, a villeda, coming in today accompanied by his regarding possibility of obstructive sleep apnea. The patient's . He describes symptoms of a loud snoring, and apneas that she has witnessed throughout the night. He states that he has sleep apnea. Nevertheless, the patient denies having any major difficulties with fatigue or sleepiness or functionality during the day. The patient was intubated around 9 PM and the patient wakes up 4:30 AM in the morning. He drives long distances without having to fall asleep. He has not had any major motor vehicle accident because of feeling drowsy or sleepy. The patient is fully functional during the day. D oes not take any naps. Current Cleveland score is at 7. He denies is considered to be fragmented. Female patient awake up in the middle of the night to urinate. He has no issues Review of Systems A full review of system was done and the positive findings are almost above history of present illness otherwise negative. Past Medical History Past Medical History: Hypertension Additional Past Medical History / Comment(s): SCREENING History of Any Multi-Drug Resistant Organisms: None Reported Past Surgical History: Joint Replacement, Orthopedic Surgery Additional Past Surgical History / Comment(s): LT KNEE SURGERY 2015 Past Anesthesia/Blood Transfusion Reactions: No Reported Reaction Past Psychological History: No Psychological Hx Reported Past Alcohol Use History: Occasional Past Drug Use History: None Reported - Past Family History Mother Family Medical History: No Reported History Medications and Allergies Home Medications Medication Instructions Recorded Confirmed Type Lisinopril/Hydrochlorothiazide 2 tab PO DAILY 06/18/15 12/07/18 History [Lisinopril-Hctz 20-12.5 mg Tab] Ciprofloxacin HCl [Cipro] 250 mg PO Q12HR #6 tablet 12/08/18 Rx Hydrocodone/Acetaminophen [[place] 1 - 2 each PO Q4HR PRN #6 tab 12/08/18 Rx 5-325] Allergies Allergy/AdvReac Type Severity Reaction Status Date / Time No Known Allergies Allergy Verified 11/22/18 14:46 Physical Exam BP is 143/93 with a pulse of 89 and a respiration of 16 and a temperature 97.4, Cleveland score is at 7, the site of the neck is 18 inches and a body mass index is 32.4 The patient appeared well nourished and normally developed. Vital signs as documented. Head exam is unremarkable. No scleral icterus or corneal arcus noted. Neck is without jugular venous distension, thyromegaly, or carotid bruits. The patient has a slight overbite with crowding of posterior pharynx and a Mallampati class IV. Carotid upstrokes are brisk bilaterally. Lungs are clear to auscultation and percussion. Cardiac exam reveals the PMI to be normally sized and situated. Rhythm is regular. First and second heart sounds normal. No murmurs, rubs or gallops. Abdominal exam reveals normal bowel sounds, no masses, no organomegaly and no aortic enlargement. Extremities are nonedematous and both femoral and pedal pulses are normal.Examination of the skin revealed no evidence of significant rashes, suspicious appearing nevi or other concerning lesions.Neurologically, the patient is awake and alert and the patient does not have any focal neurological deficit. Cranial nerves are essentially intact. Assessment and Plan Plan: Loud snoring along with witnessed apneas and the patient has an Cleveland score of 7. No major impairment intubated today functionality and the patient has no other major comorbidities and hypertension. Hypertension Positive family history for obstructive sleep apnea Mallampati class IV with significant crowding of the posterior pharynx and a slight overbite. Plan Encourage weight loss Avoid driving specially with feeling drowsy or sleepy Maintain regular sleep schedule Maintain good sleep hygiene measures Proceed with screening polysomnogram to evaluate this patient for the possibility of sleep apnea and based on the results of the sleep study will make further recommendations if treatment is needed in this patient. We'll continue to follow for now. Sleep Note - Sleep Note Sleep Note: Temperature: Pulse Rate: Respiratory Rate: Blood Pressure: SpO2: Height: Weight: BMI: Neck Circumference:
== END ==
LOC: 3 N SLEEP 13:44
PROVIDERS: ATTEND Internal Medicine Critical Care Medicine
DX: G47.30 Sleep apnea, unspecified (principal); I10 Essential (primary) hypertension; Z98.890 Other specified postprocedural states
CPT/HCPCS: 99211

== ENCOUNTER → 2022-12-24 | Outpatient (CLI) | payer OTHER, BC | END | disposition home or self-care (01) | LOC: LABWHC1 14:09 | PROVIDERS: ATTEND Urology | DX: C61 Malignant neoplasm of prostate (principal) | CPT/HCPCS: 36415; 84153 ==

== ENCOUNTER → 2023-02-25 | Outpatient (CLI) | payer BC ==
--- NOTE | 2023-02-28 12:29 | MR ---
EXAMINATION TYPE: MR knee LT wo con DATE OF EXAM: 02/25/2023 COMPARISON: 03/06/2015 HISTORY: Pain in left knee, raulito. around the patella TECHNIQUE: Multiplanar, multisequence imaging of the left knee is performed without IV contrast. FINDINGS: There has been interval development of mild subchondral edema and cyst formation posterior medial fem oral condyle. There are also mild osteoarthritic changes of the medial compartment knee with mild thi nning of the articular cartilage of the femoral condyle and mild subchondral changes in the subchondr al bone marrow. There is a grade 1 strain of the medial collateral ligament. There is meniscal capsular separation of the body and posterior horn of the medial meniscus which is displaced medially. There are multiple s mall meniscal cysts adjacent to the posterior horn of the medial meniscus and there is complex signal within the body and posterior horn the medial meniscus consistent with a complex tear and possibly i ntrameniscal cyst formation. The lateral meniscus is intact. The cruciate and lateral collateral ligaments are intact. There is a moderate joint effusion and mild thickening of plicae in the suprapatellar joint compartme nt. The patellar and quadriceps tendons are intact. IMPRESSION: 1. Moderate joint effusion with thickening of the plicae of the suprapatellar joint space. 2. Grade 1 strain of the medial collateral ligament. 3. Complex tear with meniscal capsular separation of the posterior and body of the medial meniscus wi th para meniscal cysts and possibly intrameniscal cyst formation.. 4. Interval development of mild osteoarthritic change of the medial compartment in the with subchondr al changes in the medial femoral condyle and mild articular cartilage thinning.
== END | disposition home or self-care (01) ==
LOC: RADMRIMAIN 15:54
PROVIDERS: ATTEND Orthopaedic Surgery Sports Medicine
DX: M23.322 Other meniscus derangements, posterior horn of medial meniscus, left knee (principal); M17.12 Unilateral primary osteoarthritis, left knee; M94.262 Chondromalacia, left knee; M25.462 Effusion, left knee

== ENCOUNTER → 2023-08-28 | Outpatient (CLI) | payer BC ==
[2023-08-28 21:57] LABS: HCT 43.4 % (39.6-50.0); HGB 14.7 g/dL (13.0-17.0); MCH 31.1 pg (27.0-32.0); MCHC 33.9 g/dL (32.0-37.0); MCV 91.8 FL (80.0-97.0); Mean Platelet Volume 9.7 FL (9.5-12.2); NRBC Per 100 WBC 0 X 10*3/uL (0.00-0.01); Platelet Count 239 X 10*3/uL (140-440); RBC 4.73 X 10*6/uL (4.40-5.60); RDW 11.8 % (11.5-14.5); WBC 5.78 X 10*3/uL (4.50-10.00)
[2023-08-28 21:58] LABS: Basophils # (A) 0.03 X 10*3/uL (0.00-0.10); Basophils % (A) 0.5 %; Eosinophils % (A) 3.5 %; Lymphocytes # (A) 1.59 X 10*3/uL (0.90-5.00); Lymphocytes % (A) 27.5 %; Monocytes # (A) 0.63 X 10*3/uL (0.20-1.00); Monocytes % (A) 10.9 %; Neutrophils % (A) 57.1 %
[2023-08-28 22:24] LABS: ALT 29 U/L (10-49); AST 18 U/L (14-35); Albumin 4.5 g/dL (3.8-4.9); Albumin/Globulin Ratio 1.96 Ratio (1.60-3.17); Alkaline Phosphatase 59 U/L (41-126); BUN/Creat Ratio 16.62 Ratio (12.00-20.00); Blood Urea Nitrogen 13.3 mg/dL (9.0-27.0); Calcium 9.6 mg/dL (8.7-10.3); Carbon Dioxide 26.4 mmol/L (21.6-31.8); Chloride 102 mmol/L (96-109); Chol/HDL Ratio 3.83 Ratio; Globulin 2.3 g/dL (1.6-3.3); Glucose 108 mg/dL (70-110); LDL Cholesterol,Calculated 157.4 mg/dL (0.0-131.0); Potassium 5.2 mmol/L (3.5-5.5); Sodium 139 mmol/L (135-145); Total Bilirubin 0.3 mg/dL (0.3-1.2); Total Protein 6.8 g/dL (6.2-8.2); VLDL Calculation 12.46 mg/dL (5.00-40.00)
== END | disposition home or self-care (01) ==
LOC: LABWHC1 08:53
PROVIDERS: ATTEND Internal Medicine
DX: Z00.00 Encounter for general adult medical examination without abnormal findings (principal); I10 Essential (primary) hypertension; E78.5 Hyperlipidemia, unspecified; M19.041 Primary osteoarthritis, right hand; M19.042 Primary osteoarthritis, left hand
CPT/HCPCS: 36415; 80053; 80061; 84443; 85025

== ENCOUNTER → 2024-01-04 | Outpatient (CLI) | payer BC | END | disposition home or self-care (01) | LOC: LABWHC1 13:03 | PROVIDERS: ATTEND Urology | DX: C61 Malignant neoplasm of prostate (principal) | CPT/HCPCS: 36415; 84153 ==

== ENCOUNTER → 2024-09-23 | Outpatient (CLI) | payer BC ==
[2024-09-23 13:51] LABS: VLDL Calculation 14.32 mg/dL (5.00-40.00)
== END | disposition home or self-care (01) ==
LOC: LABWHC1 10:00
PROVIDERS: ATTEND Internal Medicine
DX: Z00.00 Encounter for general adult medical examination without abnormal findings (principal)
CPT/HCPCS: 36415; 80061

== ENCOUNTER → 2025-01-20 | Outpatient (CLI) | payer BC | END | disposition home or self-care (01) | LOC: LABWHC1 08:52 | PROVIDERS: ATTEND Urology | DX: C61 Malignant neoplasm of prostate (principal) | CPT/HCPCS: 36415; 84153 ==